=== PATIENT | female | born 1960 | race Two or more races ===

== ENCOUNTER 2017-02-25 21:52 | Emergency (ER) | payer SELFPAY ==
[2017-02-25 22:05] VITALS: BP 185/84
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
--- NOTE | 2017-02-26 07:51 | RAD ---
Indication fall. Pain. AP oblique and lateral views of the left foot were obtained. AP oblique and lateral views of the left ankle were also obtained. There is generalized soft tissue swelling of the foot and ankle. There is deformity, likely posttraumatic, associated with the distal tibia. There is fusion of the distal tibia and fibula. There are are mild degenerative changes at the tibiotalar joint. An acute finding involving the ankle is not seen. Imaging of the foot demonstrates probable bony demineralization. There are some degenerative changes. An acute finding is not apparent. IMPRESSION: No acute finding seen involving the foot or ankle
== END 2017-02-25 23:12 | disposition home or self-care (01) ==
LOC: ER 21:52
DX: S93.402A Sprain of unspecified ligament of left ankle, initial encounter (principal); S93.602A Unspecified sprain of left foot, initial encounter; E11.9 Type 2 diabetes mellitus without complications; E78.00 Pure hypercholesterolemia, unspecified; I10 Essential (primary) hypertension; W01.198A Fall on same level from slipping, tripping and stumbling with subsequent striking against other object, initial encounter; Y93.89 Activity, other specified; Y92.89 Other specified places as the place of occurrence of the external cause; Y99.8 Other external cause status
CPT/HCPCS: 29515; 73610; 73630; 99284-25

== ENCOUNTER 2019-02-08 12:18 | Emergency (ER) | payer OTHER ==
[~2019-02-08] VITALS: Ht 160 cm; Wt 117.9 kg
[2019-02-08 12:20] VITALS: BP 178/81
--- NOTE | 2019-02-08 12:59 | PHYS DOC ---
Past Medical History Past Medical History: Diabetes-Type II, High Cholesterol, Hypertension, Other Additional Past Medical Histor: left ankle fracture Past Surgical History: Cholecystectomy, , Other Additional Past Surgical Histo: umbilical hernia Alcohol Use: None Drug Use: None Adult General Chief Complaint Chief Complaint: BREAST PROBLEM HPI HPI Patient speaks primary's pain and so her daughter is interpreting- offered translation phone for communication. Pt wanted dgtr to translate. 58-year-old female presents to ER for complaints of sudden onset of stinging type of sensation in her right areola. She denies finding any insect after stinging sensation started. She reports she had some irritation throughout the night and with ongoing symptoms today she came to the ER. She denies drainage, fever, palpable mass. She denies any chest pain, palpitations, or shortness of air. She reports stinging sensation is only at her areola and irritation feeling doesn't radiate to any other area. She reports her last mammogram was one half years ago. Review of Systems Review of Systems Constitutional: Denies fever or chills [] Eyes: Denies change in visual acuity, redness, or eye pain [] HENT: Denies nasal congestion or sore throat [] Respiratory: Denies cough or shortness of breath [] Cardiovascular: No additional information not addressed in HPI [] GI: Denies abdominal pain, nausea, vomiting, bloody stools or diarrhea [] : Denies dysuria or hematuria [] Musculoskeletal: Denies back pain or joint pain [] Integument: Reports irritation/stinging sensation at rt areola- with sm. reddened bump. Denies drainage Neurologic: Denies headache, focal weakness or sensory changes [] Endocrine: Denies polyuria or polydipsia [] All other systems were reviewed and found to be within normal limits, except as documented in this note. Allergies Allergies Allergies Coded Allergies Type Severity Reaction Last Updated Verified No Known Drug Allergies 02/12/16 No Physical Exam Physical Exam Constitutional: Well developed, well nourished, no acute distress, non-toxic appearance. [] HENT: Normocephalic, atraumatic, oropharynx moist, nose normal. [] Eyes: Pupils equal, conjunctiva normal, no discharge. [] Neck: Normal range of motion, no tenderness, supple, no stridor. [] Cardiovascular: Heart rate regular rhythm, no murmur [] Lungs & Thorax: Bilateral breath sounds clear to auscultation. Resp. equal/ nonlabored Breast: Sm. red bump at bottom of rt areola- tender on palp. No induration/ fluctuation at site. No hair surrounding areola. No drainage/bleeding at site. No drainage on palp. of areola bilat. On exam both breasts nontender. Pt only has c/o tenderness at site of sm. sore on rt areola. No axillary tenderness. Skin color NL in bilat. upper extremities. No palp. masses Abdomen: Bowel sounds normal, soft, no tenderness Skin: Warm, dry Extremities: No tenderness, no cyanosis, no clubbing, ROM intact, no edema. 2+ bilat radial Neurologic: Alert and oriented X 3, normal motor function, normal sensory function, no focal deficits noted. [] Psychologic: Affect normal, judgement normal, mood normal. [] Current Patient Data Vital Signs Vital Signs Date Time Temp Pulse Resp B/P (MAP) Pulse Ox O2 Delivery O2 Flow Rate FiO2 02/08/19 12:20 98.3 78 16 178/81 (113) 97 Room Air 98.3 Lab Values Laboratory Tests Test 02/08/19 12:49 Glucose (Fingerstick) 129 mg/dL (70-99) H EKG EKG [] Radiology/Procedures Radiology/Procedures [] Course & Med Decision Making Course & Med Decision Making Pertinent Labs reviewed. (See chart for details) Patient was evaluated in the ER for complaints of right areola pain with a small sore that developed yesterday. Patient was afebrile and nontoxic in appearance. Patient had small pimple-like appearance to the lower portion of her fall. Patient had no palpable mass or obvious abscess on exam. No axillary tenderness in bilateral lower extremities. Patient had no discharge from her bilateral areola. Patient ported she is type I diabetic but does not check her blood sugar daily. Accu-Chek was 129 while in the ER. Discussed use of triple antibiotic ointment to small sore for the next few days. Patient also advised she should follow-up with her primary care physician and schedule mammogram as she has not had one in the past 1-1/2 years.Education provided on signs and symptoms to return to ER. Discharge instructions were discussed. Dragon Disclaimer Dragon Disclaimer This electronic medical record was generated, in whole or in part, using a voice recognition dictation system. Departure Departure Impression: Primary Impression: Encounter for evaluation of wound Disposition: 01 HOME, SELF-CARE Condition: STABLE Referrals: BLAKE CERDA JR, MD (PCP) Patient Instructions: Breast Self-Exam, [id number], Breast Tenderness, Wound Care, [id number] Additional Instructions: As discussed triple antibiotic ointment to wound daily as directed on container. He can apply warm compress to affected area every 3-4 hours for 20- 30 minutes at a time. Cover wound if wearing brought to avoid additional irritation. Follow-up with your primary care physician in 1-2 days to schedule mammogram for further evaluation. You should monitor your blood sugar daily with your diabetes history. ILYA WADE PHOTOGRAPHER HELPER Feb 08, 2019 12:59
== END 2019-02-08 13:05 | disposition home or self-care (01) ==
LOC: ER 12:18
DX: N64.59 Other signs and symptoms in breast (principal); E11.9 Type 2 diabetes mellitus without complications; E78.00 Pure hypercholesterolemia, unspecified; I10 Essential (primary) hypertension; Z90.49 Acquired absence of other specified parts of digestive tract; Z98.890 Other specified postprocedural states
CPT/HCPCS: 82962; 99283

== ENCOUNTER 2021-03-16 18:59 | Emergency (ER) | payer OTHER ==
[~2021-03-16] VITALS: Ht 152.4 cm; Wt 100.0 kg
[2021-03-16] MEDS ORDERED: NYST15CR TP (19:57)
[2021-03-16] MEDS ORDERED: SULF1TAB23 PO (19:57)
--- NOTE | 2021-03-16 19:58 | PHYS DOC ---
Past Medical History Past Medical History: Diabetes-Type II, High Cholesterol, Hypertension, Other Additional Past Medical Histor: left ankle fracture (EPHRAIM GOODWIN T[employer] ROOM ATTENDANT) Past Surgical History: Cholecystectomy, , Other Additional Past Surgical Histo: umbilical hernia ([employer]IM [employer]WIN [employer] ATTENDANT) Smoking Status: Never Smoker Alcohol Use: None Drug Use: None (EPHRAIM GOODWIN APRN) General Adult EDM: Chief Complaint: WOUND CHECK HPI: HPI: Patient is a 60 year old Turkmen-speaking female patient with history of diabetes type 2, hypertension, high cholesterol, presenting to the ED today complaining of wounds on her right toes that she has had for 1-1/2 months. Patient denies any fever or drainage from the wounds. Patient son is interpreting for Turkmen (EPHRAIM GOODWIN APRN) Review of Systems: Review of Systems: Constitutional: Denies fever or chills. [] Musculoskeletal: Denies back pain or joint pain. [] Integument: Reports wounds between the right toes Neurologic: Denies headache, focal weakness or sensory changes. [] Psychiatric: Denies depression or anxiety. [] (EPHRAIM GOODWIN [employer] ROOM ATTENDANT) Heart Score: C/O Chest Pain: N/A Risk Factors: Risk Factors: DM, Current or recent (<one month) smoker, HTN, HLP, family history of CAD, obesity. Risk Scores: Score 0 - 3: 2.5% MACE over next 6 weeks - Discharge Home Score 4 - 6: 20.3% MACE over next 6 weeks - Admit for Clinical Observation Score 7 - 10: 72.7% MACE over next 6 weeks - Early Invasive Strategies (EPHRAIM GOODWIN APRN) Allergies: Allergies: Allergies Coded Allergies Type Severity Reaction Last Updated Verified No Known Drug Allergies 02/12/16 No (EPHRAIM GOODWIN APRN) Physical Exam: PE: Constitutional: Well developed, well nourished, no acute distress, non-toxic appearance. [] Skin: Right toes appear to be dry and crusty consistent with fungal infection. The right great toe nailbed has nail maori. There is no drainage in between the toes. The infection appears to be worse between the right second and third toes. The could be underlining slight skin infection but is not noticeable considering there is no redness or significant drainage. +2 right pedal pulse. Cap refill less than 2 seconds to the right toes. Back: No tenderness, no CVA tenderness. [] Extremities: No tenderness, no cyanosis, no clubbing, ROM intact, no edema. [] Neurologic: Alert and oriented X 3, normal motor function, normal sensory function, no focal deficits noted. [] Psychologic: Affect normal, judgement normal, mood normal. [] (EPHRAIM GOODWIN APRN) Current Patient Data: Vital Signs: Vital Signs Date Time Temp Pulse Resp B/P (MAP) Pulse Ox O2 Delivery O2 Flow Rate FiO2 03/16/21 19:10 98.2 78 18 168/61 (96) 95 Room Air 98.2 (EPHRAIM GOODWIN APRN) EKG: EKG: [] (EPHRAIM GOODWIN APRN) Radiology/Procedures: Radiology/Procedures: [] (EPHRAIM GOODWIN APRN) Course & Med Decision Making: Course & Med Decision Making Pertinent Labs and Imaging studies reviewed. (See chart for details) This is a 60-year-old female patient presented to the ED today with complaints of wound to the right toes for the last 1-1/2 months. Patient appears to have tinea pedis with some areas looking like they could be infected but there is no drainage or significant obvious signs of infection. She was discharged with nystatin and Bactrim. Encouraged to try and leave her toes open to air when not ambulating. She has good follow-up. Tetanus is updated. (EPHRAIM GOODWIN APRN) Course & Med Decision Making The chart was reviewed. I did not see the patient. The MLP evaluated and treated the patient independently. I was available for consult. (PETRA CAI DO) Michael Disclaimer: Michael Disclaimer: This electronic medical record was generated, in whole or in part, using a voice recognition dictation system. (EPHRAIM GOODWIN APRN) Departure Departure Impression: Primary Impression: Tinea pedis of right foot Additional Impression: Skin infection Disposition: 01 HOME / SELF CARE / HOMELESS Condition: STABLE Referrals: BLAKE CERDA JR, MD (PCP) Follow-up in 1 to 2 weeks Patient Instructions: Athlete's Foot, [id number], Skin Infections Additional Instructions: You were seen with a fungal infection in your toes. Use the prescribed medication as ordered. Try and leave your toes open to air when you are not ambulating. Follow-up with your doctor in 1 to 2 weeks. Also ensure your feet are always dry after taking a shower Scripts Nystatin (NYSTATIN) 15 Gm Cream..g. 1 APRIL TP TID, #30 GM 1 Refill Prov: EPHRAIM GOODWIN APRN 03/16/21 Sulfamethoxazole/Trimethoprim (BACTRIM 400-80 MG TABLET) 1 Each Tablet 1 TAB PO BID for 10 Days, #20 TAB 0 Refills Prov: EPHRAIM GOODWIN APRN 03/16/21 EPHRAIM GOODWIN APRN March 16, 2021 19:58 PETRA CAI I DO March 17, 2021 18:04
[2021-03-16] MEDS ORDERED: SMZ/TMP 800/160MG TABLET. PO ONE (20:00)
[2021-03-16] MEDS ORDERED: DIPH,PERTUSS(ACELL),TET VAC/PF 0.5 ML SYRINGE. VAX IM ONE (20:00)
[2021-03-16 20:54] VITALS: BP 170/78
== END 2021-03-16 21:00 | disposition home or self-care (01) ==
LOC: ER 18:59
DX: B35.3 Tinea pedis (principal); E11.9 Type 2 diabetes mellitus without complications; E78.00 Pure hypercholesterolemia, unspecified; I10 Essential (primary) hypertension; Z90.49 Acquired absence of other specified parts of digestive tract; Z98.890 Other specified postprocedural states
CPT/HCPCS: 90471; 90715; 99285-25

== ENCOUNTER → 2022-02-21 | Outpatient (CLI) | payer OTHER ==
[~2022-02-21] MED LIST: DOXY100T PO; GUAI120L35 PO; NYST15CR TP; SULF1TAB23 PO
--- NOTE | 2022-02-21 11:06 | KCIC ---
EXAMINATION: MRI RIGHT LOWER LEG WITHOUT IV CONTRAST CLINICAL HISTORY: FRACTURE OF SHAFT OF LEFT TIBIA. Left lower extremity pain, swelling, and discolora tion with history of remote fracture. TECHNIQUE: Multiplanar multisequential images obtained through the left lower leg without intravenous contrast. COMPARISON: Left ankle radiographs 02/09/2022 FINDINGS/ IMPRESSION: Healed remote oblique fracture deformity in the distal tibial metadiaphysis. No evidence of acute fra cture or suspicious marrow replacing process. Muscles within normal limits. Skin thickening and moderate to marked subcutaneous edema most pronounc ed along the lateral aspect of the mid to distal leg, nonspecific but can be seen with cellulitis in the appropriate clinical setting. Electronically signed by: Alexi Rubio DO (02/21/2022 11:04 AM) [id number]
== END ==
LOC: KCIC MRI 07:58
PROVIDERS: ATTEND Orthopaedic Surgery
DX: S82.202D Unspecified fracture of shaft of left tibia, subsequent encounter for closed fracture with routine healing (principal); R23.4 Changes in skin texture; X58.XXXD Exposure to other specified factors, subsequent encounter
CPT/HCPCS: 73718

== ENCOUNTER 2022-02-27 12:35 | Emergency (ER) | payer OTHER ==
[~2022-02-27] VITALS: Ht 152.4 cm; Wt 110.6 kg
[~2022-02-27 12:35] MED LIST changes: -DOXY100T PO; -GUAI120L35 PO
--- NOTE | 2022-02-27 13:29 | PHYS DOC ---
Past Medical History Past Medical History: Diabetes-Type II, High Cholesterol, Hypertension, Other Additional Past Medical Histor: left ankle fracture Past Surgical History: No Surgical History Additional Past Surgical Histo: umbilical hernia Smoking Status: Never Smoker Alcohol Use: None Drug Use: None General Adult EDM: Chief Complaint: COUGH HPI: HPI: Patient is a 61 year old female with history of diabetes type 2, hypertension, high cholesterol, presenting to the ED today complaining of a productive cough with nasal congestion for 3 weeks. Patient denies any fever, shortness of breath, chest pain. She states she has been seen by her PCP for the symptoms in the last 3 weeks and was diagnosed with allergies. She states she does not believe this is allergies. 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 [] Eyes: Denies change in visual acuity. [] HENT: Reports nasal congestion Respiratory: Reports cough Cardiovascular: Denies chest pain or edema. [] GI: Denies abdominal pain, nausea, vomiting, bloody stools or diarrhea. [] : Denies dysuria. [] Musculoskeletal: Denies back pain or joint pain. [] Integument: Denies rash. [] Neurologic: Denies headache, focal weakness or sensory changes. [] Psychiatric: Denies depression or anxiety. [] Heart Score: C/O Chest Pain: N/A Risk Factors: Risk Factors: DM, Current or recent (<one month) smoker, HTN, HLP, family history of CAD, obesity. Risk Scores: Score 0 - 3: 2.5% MACE over next 6 weeks - Discharge Home Score 4 - 6: 20.3% MACE over next 6 weeks - Admit for Clinical Observation Score 7 - 10: 72.7% MACE over next 6 weeks - Early Invasive Strategies Allergies: Allergies: Allergies Coded Allergies Type Severity Reaction Last Updated Verified No Known Drug Allergies 02/27/22 No Physical Exam: PE: Constitutional: Well developed, well nourished, no acute distress, non-toxic appearance. [] HENT: Normocephalic, atraumatic, bilateral external ears normal, oropharynx moist, no oral exudates, patient sounds congested nasally Eyes: PERRLA, EOMI, conjunctiva normal, no discharge. [] Neck: Normal range of motion, no tenderness, supple, no stridor. [] Cardiovascular:Heart rate regular rhythm, no murmur [] Lungs & Thorax: Bilateral breath sounds clear to auscultation [] Abdomen: Bowel sounds normal, soft, no tenderness, no masses, no pulsatile masses. [] Skin: Warm, dry, no erythema, no rash. [] Back: No tenderness, no CVA tenderness. [] Extremities: No tenderness, no cyanosis, no clubbing, ROM intact, no edema. [] Neurologic: Alert and oriented X 3, normal motor function, normal sensory function, no focal deficits noted. [] Psychologic: Affect normal, judgement normal, mood normal. [] Current Patient Data: Vital Signs: Vital Signs Date Time Temp Pulse Resp B/P (MAP) Pulse Ox O2 Delivery O2 Flow Rate FiO2 02/27/22 13:20 98.0 66 18 176/72 (106) 97 Room Air 98.0 EKG: EKG: [] Radiology/Procedures: Radiology/Procedures: []PROCEDURE: PORTABLE CHEST 1V EXAM: AP View of the chest DATE: 02/27/2022 1:37 PM INDICATION: Reason: cough / Spl. Instructions: / History: COMPARISON: No Prior FINDINGS: The heart is not enlarged. Aorta is tortuous. Patchy airspace opacities left upper lung and midlung as well as the right lung base likely multifocal consolidative process such as pneumonia. No pleural effusion or pneumothorax. IMPRESSION: Patchy bilateral airspace opacities likely multifocal consolidative process such as pneumonia. Electronically signed by: Francisco Mcneal MD (02/27/2022 1:42 PM) [id number] DICTATED and SIGNED BY: FRANCISCO MCNEAL MD DATE: 02/27/22 1341 Course & Med Decision Making: Course & Med Decision Making Pertinent Labs and Imaging studies reviewed. (See chart for details) This is a 61-year-old female patient presenting to the ED today with cough, and nasal congestion, symptoms for 3 weeks. O2 sats 98% on room air Negative rapid influenza test, negative rapid COVID test, chest x-ray noted for bilateral pneumonia. O2 sats 98% on room air, patient is afebrile. Given Rocephin IM in the ED and discharged on doxycycline. Provided return precautions. Follow-up with PCP in the course of this week Michael Disclaimer: Michael Disclaimer: This electronic medical record was generated, in whole or in part, using a voice recognition dictation system. Departure Departure Impression: Primary Impression: Bilateral pneumonia Qualified Codes: J18.9 - Pneumonia, unspecified organism Disposition: HOME / SELF CARE / HOMELESS Condition: STABLE Referrals: BLAKE CERDA JR, MD (PCP) Follow-up in 2 to 5 days Patient Instructions: Pneumonia, Adult, [id number] Additional Instructions: You have pneumonia. Take the prescribed antibiotics until completed. Please follow-up with your doctor in the course of this week, come back to the ED at any point symptoms worsen Scripts Guaifenesin/Codeine Phosphate (Codeine-Guaifen 10-100 mg/5 ml) 120 Ml Liquid 5 ML PO PRN Q6HRS PRN for cough and congestion MDD 20 Milliliter(s) for 6 Days, #120 ML 0 Refills Prov: EPHRAIM GOODWIN APRN 02/27/22 Doxycycline Hyclate (DOXYCYCLINE HYCLATE) 100 Mg Tablet 1 TAB PO BID, #14 TAB Prov: EPHRAIM GOODWIN APRN 02/27/22 EPHRAIM GOODWIN APRN February 27, 2022 13:29
--- NOTE | 2022-02-27 13:44 | RAD ---
EXAM: AP View of the chest DATE: 02/27/2022 1:37 PM INDICATION: Reason: cough / Spl. Instructions: / History: COMPARISON: No Prior FINDINGS: The heart is not enlarged. Aorta is tortuous. Patchy airspace opacities left upper lung and midlung as well as the right lung base likely multifoca l consolidative process such as pneumonia. No pleural effusion or pneumothorax. IMPRESSION: Patchy bilateral airspace opacities likely multifocal consolidative process such as pneumonia. Electronically signed by: Francisco Mcneal MD (02/27/2022 1:42 PM) [id number]
[2022-02-27 14:07] LABS: INFLUENZA A PATIENT NEGATIVE (NEGATIVE); INFLUENZA B PATIENT NEGATIVE (NEGATIVE)
[2022-02-27] MEDS ORDERED: cefTRIAXone IM 1 GM VIAL IM ONE (14:15)
[2022-02-27] MEDS ORDERED: LIDOCAINE 1% PF 2 ML VIAL. INJ ONE (14:15)
[2022-02-27] MEDS ORDERED: DOXY100T PO (14:51)
[2022-02-27] MEDS ORDERED: GUAI120L35 PO (14:51)
[2022-02-27 15:20] VITALS: BP 150/76
== END 2022-02-27 15:26 | disposition home or self-care (01) ==
LOC: ER 12:35
DX: J18.9 Pneumonia, unspecified organism (principal); Z20.822 Contact with and (suspected) exposure to COVID-19; E78.00 Pure hypercholesterolemia, unspecified; E11.9 Type 2 diabetes mellitus without complications; I10 Essential (primary) hypertension
CPT/HCPCS: 71045; 87428; 96372; 99284; J0696; J3490